=== PATIENT | female | born 1960 | race Caucasian/White ===

== ENCOUNTER 2018-07-19 08:41 | Inpatient (IN) | payer OTHER ==
[2018-07-19 09:03] VITALS: BMI 19.9
--- NOTE | 2018-07-19 09:37 | HP ---
CIWA Score Nausea/Vomitin Muscle Tremors: 2 Anxiety: 2 Agitation: 2 Paroxysmal Sweats: 1-Minimal Palms Moist Orientation: 0-Oriented Tacttile Disturbances: 1-Very Mild Itch/Numbness Auditory Disturbances: 1-Very Mild Visual Disturbances: 0-None Headache: 2-Mild CIWA-Ar Total Score: 13 - Admission Criteria OASAS Guidelines: Admission for Medically Managed Detox: Requires at least one of the followin. CIWA greater than 12 2. Seizures within the past 24 hours 3. Delirium tremens within the past 24 hours 4. Hallucinations within the past 24 hours 5. Acute intervention needed for co occurring medical disorder 6. Acute intervention needed for co occurring psychiatric disorder 7. Severe withdrawal that cannot be handled at a lower level of care (continued vomiting, continued diarrhea, abnormal vital signs) requiring intravenous medication and/or fluids 8. Patient presents the following: CIWA greater than 12 Admission Criteria Met: Admission criteria met Admission ROS S - HPI Chief Complaint: i need help to stop drinking alcohol,cocaine,heroin abused on subxone Allergies/Adverse Reactions: Allergies Allergy/AdvReac Type Severity Reaction Status Date / Time No Known Allergies Allergy Verified 07/19/18 09:56 History of Present Illness: this 37 years old female with alcohol and cocaine dependence,heroin abused,on suboxone,withdrawal symptom,seen in [place] last night,last treatment hypertension,cat bite of right leg and right index seizure last 1988 nicotine dependence weight loss depression longest period of sobriety 6 months tonsillectomy in 1979 asthma plan to go to rehab after detox Exam Limitations: No Limitations - Ebola screening Have you traveled outside of the country in the last 21 days: No Have you had contact with anyone from an Ebola affected area: No Have you been sick,other than usual withdrawal symptoms: No Do you have a fever: No - Review of Systems Constitutional: Loss of Appetite, Malaise, Night Sweats, Changes in sleep, Weakness, Unintentional Wgt. Loss EENT: reports: No Symptoms Reported, Nose Congestion Respiratory: reports: No Symptoms reported Cardiac: reports: No Symptoms Reported GI: reports: Nausea, Poor Appetite, Abdominal cramping : reports: No Symptoms Reported Musculoskeletal: reports: Back Pain, Muscle Pain Integumentary: reports: Dryness Neuro: reports: Headache, Tremors Endocrine: reports: No Symptoms Reported Hematology: reports: No Symptoms Reported Psychiatric: reports: Judgement Intact, Mood/Affect Appropiate, Orientated x3, Depressed Other Systems: Reviewed and Negative Patient History - Patient Medical History Hx Anemia: No Hx Asthma: Yes (on albuterol inhaler) Hx Chronic Obstructive Pulmonary Disease (COPD): No Hx Cancer: No Hx Cardiac Disorders: No Hx Congestive Heart Failure: No Hx Hypertension: Yes Hx Hypercholesterolemia: No Hx Pacemaker: No HX Cerebrovascular Accident: No Hx Seizures: Yes (last in 1988) Hx Dementia: No Hx Diabetes: No Hx Gastrointestinal Disorders: No Hx Liver Disease: No Hx Genitourinary Disorders: No Hx Sexually Transmitted Disorders: No Hx Renal Disease (ESRD): No Hx Thyroid Disease: No Hx Human Immunodeficiency Virus (HIV): No (last 2016) Hx Hepatitis C: No Hx Depression: Yes (no med) Hx Suicide Attempt: No Hx Bipolar Disorder: No Hx Schizophrenia: No Other Medical History: no suicidal,no homicidal,frequent fall - Patient Surgical History Past Surgical History: Yes Hx Section: Yes (x 2,last 32 years ago) Other Surgical History: tonsillectomy in 1979, - PPD History Previous Implant?: Yes Documented Results: Negative w/o proof Implanted On Prior R Admission?: No PPD to be Administered?: Yes - Reproductive History Patient : No - Smoking Cessation Smoking history: Current every day smoker Have you smoked in the past 12 months: Yes Aproximately how many cigarettes per day: 10 Cigars Per Day: 0 Hx Chewing Tobacco Use: No Initiated information on smoking cessation: Yes 'Breaking Loose' booklet given: 07/19/18 - Substance & Tx. History Hx Alcohol Use: Yes Hx Substance Use: Yes Substance Use Type: Alcohol, Cocaine, Heroin Hx Substance Use Treatment: Yes (in [address] [place] [address]) - Substances Abused Alcohol Route: Oral Frequency: Daily Amount used: 1/2 PINT VODKA/ 4-5 BEERS Age of first use: 14 Date of Last Use: 07/18/18 Cocaine Route: Smoking Frequency: Daily Amount used: 2 BAGS Age of first use: 28 Date of Last Use: 07/18/18 Heroin Route: Inhalation Frequency: Daily Amount used: 1 BAG Age of first use: 28 Date of Last Use: 07/17/18 Family Disease History - Family Disease History Family History: Denies Admission Physical Exam S - Vital Signs Vital Signs: Vital Signs - 24 hr 07/19/18 08:57 Temperature 97 F L Pulse Rate 67 Respiratory 17 Rate Blood Pressure 108/63 - Physical General Appearance: Yes: Moderate Distress, Tremorous, Irritable, Sweating, Anxious HEENTM: Yes: Normal ENT Inspection, WEN, Pharynx Normal Respiratory: Yes: Lungs Clear, Normal Breath Sounds, No Respiratory Distress Neck: Yes: Within Normal Limits, Supple, Trachea in good position Breast: Yes: Breast Exam Deferred Cardiology: Yes: Within Normal Limits, Regular Rhythm, Regular Rate, S1, S2 Abdominal: Yes: Within Normal Limits, Normal Bowel Sounds, Non Tender, Flat, Soft Genitourinary: Yes: Within Normal Limits Back: Yes: Muscle Spasm Musculoskeletal: Yes: full range of Motion, Back pain, Muscle Pain Extremities: Yes: Within Normal Limits, Normal Range of Motion, Tremors Neurological: Yes: Within Normal Limits, tooth cutter spur II-XII NML intact, Fully Oriented, Alert, Motor Strength 5/5 Integumentary: Yes: Dry Lymphatic: Yes: Within Normal Limits - Diagnostic (1) Alcohol dependence with uncomplicated withdrawal Current Visit: Yes Status: Acute (2) Cocaine dependence Current Visit: Yes Status: Acute (3) Heroin abuse Current Visit: Yes Status: Acute (4) Encounter for monitoring Suboxone maintenance therapy Current Visit: Yes Status: Acute (5) Weight loss Current Visit: Yes Status: Acute (6) Seizure Current Visit: Yes Status: Acute (7) Nicotine dependence Current Visit: Yes Status: Acute (8) Depression Current Visit: Yes Status: Acute (9) Cat bite of index finger Current Visit: Yes Status: Acute (10) Frequent falls Current Visit: Yes Status: Acute Cleared for Admission [facility] - Detox or Rehab [facility] Level of Care: Medically Managed Detox Regimen/Protocol: Librium [facility] Breath Alcohol Content Breath Alcohol Content: 0.045 Urine Pregancy Test - Result Urine Test Results: Negative- NO Line Present Urine Drug Screen - Results Drug Screen Negative: No Urine Drug Screen Results: ZION-Cocaine, OPI-Opiates, BUP-Suboxone Inpatient Rehab Admission - Rehab Decision to Admit Inpatient rehab admission?: No
[2018-07-19] MEDS ORDERED: ACETAMINOPHEN 325 MG TABLET (FP) PO PRN (10:19)
[2018-07-19] MEDS ORDERED: MAG HYDROX/AL HYDROX/SIMETH 30 ML UNIT-DOSE CUP PO PRN (10:19)
[2018-07-19] MEDS ORDERED: MAGNESIUM HYDROX 2400MG/30ML ORAL SUSPENSION 30 ML CUP PO PRN (10:19)
[2018-07-19] MEDS ORDERED: guaiFENesin/D-METHORPHAN HB 10 ML UNIT-DOSE CUPS PO PRN (10:19)
[2018-07-19] MEDS ORDERED: hydrOXYzine PAMOATE 25 MG CAPSULE (FP) PO PRN (10:19)
[2018-07-19] MEDS ORDERED: LOPERAMIDE HCL 2 MG CAPSULE PO PRN (10:19)
[2018-07-19] MEDS ORDERED: chlordiazePOXIDE HCL 25 MG CAPSULE PO PRN (10:19)
[2018-07-19] MEDS ORDERED: P-EPHED 60MG/TRIPROLIDI 2.5MG TABLET PO PRN (10:19)
[2018-07-19] MEDS ORDERED: IBUPROFEN 400 MG TABLET (FP) PO PRN (10:19)
[2018-07-19] MEDS ORDERED: MAGNESIUM CITRATE 300 ML BOTTLE PO PRN (10:19)
[2018-07-19] MEDS ORDERED: ALBUTEROL SO4 8 GM HFA INHALER IH PRN (10:26)
[2018-07-19] MEDS: chlordiazePOXIDE HCL 25 MG CAPSULE PO SCH ×3 (11:56→22:15)
[2018-07-19] MEDS: NICOTINE 21 MG/24 HOURS TOPICAL PATCH TD SCH (11:56)
--- NOTE | 2018-07-19 13:46 | EKG ---
Test Reason : Blood Pressure : / mmHG Vent. Rate : 076 BPM Atrial Rate : 076 BPM P-R Int : 140 ms QRS Dur : 090 ms QT Int : 464 ms P-R-T Axes : 081 015 055 degrees QTc Int : 522 ms NORMAL SINUS RHYTHM POSSIBLE LEFT ATRIAL ENLARGEMENT LEFT VENTRICULAR HYPERTROPHY INFERIOR INFARCT , AGE UNDETERMINED PROLONGED QT ABNORMAL ECG NO PREVIOUS ECGS AVAILABLE Confirmed by ADI POTTER, ZURDO ([id number]) on 07/19/2018 1:45:52 PM Referred By: Confirmed By:ZURDO JOSHI MD
[2018-07-19] MEDS: NICOTINE POLACRILEX 2 MG GUM BUC PRN (17:30)
[2018-07-19 17:37] LABS: URINE APPEARANCE CLEAR; URINE BILIRUBIN NEGATIVE (<2.0 mg/dL); URINE COLOR STRAW; URINE GLUCOSE (UA) NEGATIVE (NEGATIVE); URINE KETONE 1+ (NEGATIVE); URINE LEUK ESTERASE NEGATIVE (NEGATIVE); URINE NITRITE NEGATIVE (NEGATIVE); URINE PROTEIN NEGATIVE (NEGATIVE); URINE UROBILINOGEN NEGATIVE mg/dL (0.2-1.0)
[2018-07-19] MEDS ORDERED: MELATONIN 5 MG TABLETS PO PRN (22:00)
[2018-07-19] MEDS: PATIENT'S OWN MEDICATION (NON-FORMULARY) (Amox-Tr/K Cl [Augmentin 875-125mg Tablet -] 1 TA PO SCH (22:14)
[2018-07-19] MEDS: THIAMINE HCL 100 MG TABLET (FP) PO SCH (22:14)
[2018-07-20] MEDS: chlordiazePOXIDE HCL 25 MG CAPSULE PO SCH ×4 (06:05→22:17)
[2018-07-20] MEDS: PATIENT'S OWN MEDICATION (NON-FORMULARY) (Amox-Tr/K Cl [Augmentin 875-125mg Tablet -] 1 TA PO SCH ×2 (10:08→22:17)
[2018-07-20] MEDS: BUPRENORPHINE/NALOXONE 2 MG/0.5 MG FILM PACKET SL SCH (10:08)
[2018-07-20] MEDS: PRENATAL VITAMINS W/ FOLIC ACID TABLET (FP) PO SCH (10:08)
[2018-07-20] MEDS: ENALAPRIL MALEATE 10 MG TABLET (FP) PO SCH (10:09)
[2018-07-20] MEDS: NIFEdipine E.R. 30 MG TABLET (FP) PO SCH (10:09)
[2018-07-20] MEDS: NICOTINE 21 MG/24 HOURS TOPICAL PATCH TD SCH (10:10)
[2018-07-20 10:34] LABS: HEMOGLOBIN 10.1 GM/dL (10.7-15.3); MCH 30.2 pg (25.7-33.7); MCHC 33.8 g/dl (32.0-36.0); MEAN CELL VOLUME 89.3 fl (80-96); PLATELET COUNT 232 K/MM3 (134-434); RBC 3.36 M/mm3 (3.60-5.2); WHITE BLOOD COUNT 6.3 K/mm3 (4.0-10.0)
[2018-07-20] MEDS: MENTHOL/PHENOL 1 EACH UD MM PRN ×2 (10:47→14:57)
[2018-07-20 10:58] LABS: ALBUMIN 4.2 g/dl (3.4-5.0); ALK PHOS 110 U/L (45-117); ANION GAP 12 MMOL/L (8-16); BILIRUBIN,TOTAL 0.6 mg/dL (0.2-1); BLOOD UREA NITROGEN 35 mg/dL (7-18); CHLORIDE 100 mmol/L (98-107); CO2 24 mmol/L (21-32); CREATININE 1.2 mg/dL (0.55-1.3); GLUCOSE,RANDOM 67 mg/dL (74-106); POTASSIUM 3.9 mmol/L (3.5-5.1); SGOT/AST 31 U/L (15-37); SGPT/ALT 37 U/L (13-61); SODIUM 136 mmol/L (136-145); TOT PROT 7.4 g/dl (6.4-8.2)
--- NOTE | 2018-07-20 11:39 | PN ---
S CIWA - CIWA Score Nausea/Vomitin-No Nausea/No Vomiting Muscle Tremors: 4-Moderate,w/Arms Extend Anxiety: 3 Agitation: 3 Paroxysmal Sweats: 3 Orientation: 0-Oriented Tacttile Disturbances: 0-None Auditory Disturbances: 0-None Visual Disturbances: 0-None Headache: 0-None Present CIWA-Ar Total Score: 13 S Progress Note (SOAP) Subjective: chills sweats interrupted sleep body aches sore throat Objective: 07/20/18 11:34 Vital Signs Temperature 97.7 F 07/20/18 10:23 Pulse Rate 79 07/20/18 10:23 Respiratory Rate 16 07/20/18 10:23 Blood Pressure 115/53 L 07/20/18 10:23 O2 Sat by Pulse Oximetry (%) Laboratory Tests 07/19/18 07/19/18 07/20/18 09:51 15:30 06:00 WBC 6.3 RBC 3.36 L Hgb 10.1 L Hct 30.0 L MCV 89.3 MCH 30.2 MCHC 33.8 RDW 15.0 Plt Count 232 MPV 8.0 Sodium Potassium Chloride Carbon Dioxide Anion Gap BUN Creatinine Creat Clearance w eGFR Random Glucose Calcium Total Bilirubin AST ALT Alkaline Phosphatase Total Protein Albumin Urine Color Straw Urine Appearance Clear Urine pH 6.0 Ur Specific [place] 1.045 H Urine Protein Negative Urine Glucose (UA) Negative Urine Ketones 1+ H Urine Blood Negative Urine Nitrite Negative Urine Bilirubin Negative Urine Urobilinogen Negative Ur Leukocyte Esterase Negative HIV 1&2 Antibody Screen Negative HIV P24 Antigen Negative 07/20/18 06:00 WBC RBC Hgb Hct MCV MCH MCHC RDW Plt Count MPV Sodium 136 Potassium 3.9 Chloride 100 Carbon Dioxide 24 Anion Gap 12 BUN 35 H Creatinine 1.2 Creat Clearance w eGFR 46.30 Random Glucose 67 L Calcium 9.0 Total Bilirubin 0.6 AST 31 ALT 37 Alkaline Phosphatase 110 Total Protein 7.4 Albumin 4.2 Urine Color Urine Appearance Urine pH Ur Specific [place] Urine Protein Urine Glucose (UA) Urine Ketones Urine Blood Urine Nitrite Urine Bilirubin Urine Urobilinogen Ur Leukocyte Esterase HIV 1&2 Antibody Screen HIV P24 Antigen aaox3 ambulating no acute distress Assessment: 07/20/18 11:35 withdrawal sx throat assessed;no s/s of infection noted Plan: continue detox increase fluids throat lozenges
[2018-07-20 11:49] LABS: SICKLE CELL SCREEN NEGATIVE (NEGATIVE)
[2018-07-20] MEDS: THIAMINE HCL 100 MG TABLET (FP) PO SCH (22:16)
[2018-07-21] MEDS: chlordiazePOXIDE HCL 25 MG CAPSULE PO SCH (05:31)
[2018-07-21] MEDS: PATIENT'S OWN MEDICATION (NON-FORMULARY) (Amox-Tr/K Cl [Augmentin 875-125mg Tablet -] 1 TA PO SCH ×2 (10:08→22:35)
[2018-07-21] MEDS: ENALAPRIL MALEATE 10 MG TABLET (FP) PO SCH (10:09)
[2018-07-21] MEDS: NIFEdipine E.R. 30 MG TABLET (FP) PO SCH (10:09)
[2018-07-21] MEDS: BUPRENORPHINE/NALOXONE 2 MG/0.5 MG FILM PACKET SL SCH (10:09)
[2018-07-21] MEDS: PRENATAL VITAMINS W/ FOLIC ACID TABLET (FP) PO SCH (10:09)
[2018-07-21] MEDS: NICOTINE 21 MG/24 HOURS TOPICAL PATCH TD SCH (10:09)
[2018-07-21] MEDS: chlordiazePOXIDE 5 MG CAPSULE PO SCH ×3 (10:10→22:35)
--- NOTE | 2018-07-21 12:41 | PN ---
[facility] CIWA - CIWA Score Nausea/Vomitin-No Nausea/No Vomiting Muscle Tremors: 3 Anxiety: 3 Agitation: 3 Paroxysmal Sweats: 2 Orientation: 0-Oriented Tacttile Disturbances: 0-None Auditory Disturbances: 0-None Visual Disturbances: 0-None Headache: 0-None Present CIWA-Ar Total Score: 11 S Progress Note (SOAP) Subjective: sweats little dizzy little shakes Objective: 07/21/18 12:40 Vital Signs Temperature 98.0 F 07/21/18 09:24 Pulse Rate 86 07/21/18 09:24 Respiratory Rate 18 07/21/18 09:24 Blood Pressure 109/63 07/21/18 09:24 O2 Sat by Pulse Oximetry (%) Laboratory Tests 07/19/18 07/19/18 07/20/18 09:51 15:30 06:00 WBC 6.3 RBC 3.36 L Hgb 10.1 L Hct 30.0 L MCV 89.3 MCH 30.2 MCHC 33.8 RDW 15.0 Plt Count 232 MPV 8.0 Sickle Cell Screen Negative Sodium Potassium Chloride Carbon Dioxide Anion Gap BUN Creatinine Creat Clearance w eGFR Random Glucose Calcium Total Bilirubin AST ALT Alkaline Phosphatase Total Protein Albumin Urine Color Straw Urine Appearance Clear Urine pH 6.0 Ur Specific [place] 1.045 H Urine Protein Negative Urine Glucose (UA) Negative Urine Ketones 1+ H Urine Blood Negative Urine Nitrite Negative Urine Bilirubin Negative Urine Urobilinogen Negative Ur Leukocyte Esterase Negative RPR Titer HIV 1&2 Antibody Screen Negative HIV P24 Antigen Negative 07/20/18 07/20/18 06:00 06:00 WBC RBC Hgb Hct MCV MCH MCHC RDW Plt Count MPV Sickle Cell Screen Sodium 136 Potassium 3.9 Chloride 100 Carbon Dioxide 24 Anion Gap 12 BUN 35 H Creatinine 1.2 Creat Clearance w eGFR 46.30 Random Glucose 67 L Calcium 9.0 Total Bilirubin 0.6 AST 31 ALT 37 Alkaline Phosphatase 110 Total Protein 7.4 Albumin 4.2 Urine Color Urine Appearance Urine pH Ur Specific [place] Urine Protein Urine Glucose (UA) Urine Ketones Urine Blood Urine Nitrite Urine Bilirubin Urine Urobilinogen Ur Leukocyte Esterase RPR Titer Nonreactive HIV 1&2 Antibody Screen HIV P24 Antigen aaox3 ambulating no acute distress Assessment: 07/21/18 12:40 withdrawal sx Plan: continue detox increase fluids
[2018-07-21] MEDS: MENTHOL/PHENOL 1 EACH UD MM PRN (14:00)
[2018-07-21] MEDS: THIAMINE HCL 100 MG TABLET (FP) PO SCH (22:35)
[2018-07-21] MEDS: NICOTINE POLACRILEX 2 MG GUM BUC PRN (22:37)
[2018-07-22] MEDS: chlordiazePOXIDE 5 MG CAPSULE PO SCH (05:18)
[2018-07-22] MEDS: BUPRENORPHINE/NALOXONE 2 MG/0.5 MG FILM PACKET SL SCH (11:17)
[2018-07-22] MEDS: PRENATAL VITAMINS W/ FOLIC ACID TABLET (FP) PO SCH (11:17)
[2018-07-22] MEDS: NIFEdipine E.R. 30 MG TABLET (FP) PO SCH (11:17)
[2018-07-22] MEDS: ENALAPRIL MALEATE 10 MG TABLET (FP) PO SCH (11:17)
[2018-07-22] MEDS: chlordiazePOXIDE HCL 10 MG CAPSULE PO SCH ×3 (11:17→22:19)
[2018-07-22] MEDS: NICOTINE 21 MG/24 HOURS TOPICAL PATCH TD SCH (11:18)
[2018-07-22] MEDS: PATIENT'S OWN MEDICATION (NON-FORMULARY) (Amox-Tr/K Cl [Augmentin 875-125mg Tablet -] 1 TA PO SCH ×2 (11:18→22:19)
--- NOTE | 2018-07-22 17:09 | PN ---
S Progress Note (SOAP) Subjective: offers no complaint Objective: 07/22/18 17:07 in hallway, ambulating steadily no distress noted Vital Signs Temperature 97.5 F L 07/22/18 14:36 Pulse Rate 575 H 07/22/18 14:36 Respiratory Rate 18 07/22/18 14:36 Blood Pressure 128/77 07/22/18 14:36 O2 Sat by Pulse Oximetry (%) Assessment: 07/22/18 17:08 detox going on successfully Plan: for d/c in a.m
[2018-07-22] MEDS: MENTHOL/PHENOL 1 EACH UD MM PRN (17:30)
[2018-07-22] MEDS: NICOTINE POLACRILEX 2 MG GUM BUC PRN ×2 (17:30→22:21)
[2018-07-22] MEDS: THIAMINE HCL 100 MG TABLET (FP) PO SCH (22:19)
[2018-07-23] MEDS: chlordiazePOXIDE HCL 10 MG CAPSULE PO SCH (05:22)
[2018-07-23] MEDS: NICOTINE POLACRILEX 2 MG GUM BUC PRN (05:23)
[2018-07-23 09:31] VITALS: BP 127/68; PULSE 77; TEMP 99.5
[2018-07-23] MEDS: NICOTINE 21 MG/24 HOURS TOPICAL PATCH TD SCH (10:45)
[2018-07-23] MEDS: BUPRENORPHINE/NALOXONE 2 MG/0.5 MG FILM PACKET SL SCH (10:45)
[2018-07-23] MEDS: PRENATAL VITAMINS W/ FOLIC ACID TABLET (FP) PO SCH (10:46)
[2018-07-23] MEDS: NIFEdipine E.R. 30 MG TABLET (FP) PO SCH (10:46)
[2018-07-23] MEDS: ENALAPRIL MALEATE 10 MG TABLET (FP) PO SCH (10:46)
--- NOTE | 2018-07-23 11:07 | DS ---
[facility] Detox Discharge Summary Admission Date: 07/19/18 Discharge Date: 07/23/18 - History Present History: Alcohol Dependence, Cocaine Dependence, Opioid Dependence, MMTP Additional Comments: Patient completed detox. Await admission to [facility] inpatient Rehab today. Patient is A/A/Ox3, in nad, vss, ambulatory. Patient is stable for admission to Rehab. Pertinent Past History: Alcohol dependence Cocaine dependence Opioid dependence on agonist Seizure disorder Nicotine dependence Asthma HTN Depression - Physical Exam Results Vital Signs: Vital Signs Temperature 99.5 F 07/23/18 09:31 Pulse Rate 77 07/23/18 09:31 Respiratory Rate 18 07/23/18 09:31 Blood Pressure 127/68 07/23/18 09:31 O2 Sat by Pulse Oximetry (%) Pertinent Admission Physical Exam Findings: Laboratory Tests 07/19/18 07/19/18 07/20/18 09:51 15:30 06:00 WBC 6.3 RBC 3.36 L Hgb 10.1 L Hct 30.0 L MCV 89.3 MCH 30.2 MCHC 33.8 RDW 15.0 Plt Count 232 MPV 8.0 Sickle Cell Screen Negative Sodium Potassium Chloride Carbon Dioxide Anion Gap BUN Creatinine Creat Clearance w eGFR Random Glucose Calcium Total Bilirubin AST ALT Alkaline Phosphatase Total Protein Albumin Urine Color Straw Urine Appearance Clear Urine pH 6.0 Ur Specific [place] 1.045 H Urine Protein Negative Urine Glucose (UA) Negative Urine Ketones 1+ H Urine Blood Negative Urine Nitrite Negative Urine Bilirubin Negative Urine Urobilinogen Negative Ur Leukocyte Esterase Negative RPR Titer HIV 1&2 Antibody Screen Negative HIV P24 Antigen Negative 07/20/18 07/20/18 06:00 06:00 WBC RBC Hgb Hct MCV MCH MCHC RDW Plt Count MPV Sickle Cell Screen Sodium 136 Potassium 3.9 Chloride 100 Carbon Dioxide 24 Anion Gap 12 BUN 35 H Creatinine 1.2 Creat Clearance w eGFR 46.30 Random Glucose 67 L Calcium 9.0 Total Bilirubin 0.6 AST 31 ALT 37 Alkaline Phosphatase 110 Total Protein 7.4 Albumin 4.2 Urine Color Urine Appearance Urine pH Ur Specific [place] Urine Protein Urine Glucose (UA) Urine Ketones Urine Blood Urine Nitrite Urine Bilirubin Urine Urobilinogen Ur Leukocyte Esterase RPR Titer Nonreactive HIV 1&2 Antibody Screen HIV P24 Antigen Labs reviewed: noted with anemia and CRISTINO (encouraged PO water hydration), would benefit from iron studies to check if iron deficiency anemia. Consider repeating BMP on rehab floor - Treatment Hospital Course: Detox Protocol Followed, Detoxed Safely, Responded well, Discharged Condition Good, Rehab Referral Accepted - Medication Discharge Medications: Ambulatory Orders Albuterol Sulfate Inhaler - [Ventolin Hfa Inhaler -] 2 inh PO Q4H PRN 07/19/18 Amox-Tr/K Cl [Augmentin - 875Mg Tablet] 1 tab PO BID 07/19/18 Buprenorphine HCl/Naloxone HCl [Zubsolv 1.4-0.36 mg Tablet Sl] 1 each SL DAILY 07/19/18 Enalapril Maleate [Vasotec] 20 mg PO DAILY 07/19/18 Ibuprofen [Motrin -] 400 mg PO TID 07/19/18 Nifedipine ER [Procardia Xl -] 30 mg PO DAILY 07/19/18 - Diagnosis (1) Asthma Current Visit: Yes Status: Chronic (2) HTN (hypertension) Current Visit: Yes Status: Chronic (3) Alcohol dependence with uncomplicated withdrawal Current Visit: Yes Status: Acute (4) Cat bite of index finger Current Visit: Yes Status: Acute (5) Cocaine dependence Current Visit: Yes Status: Chronic (6) Depression Current Visit: Yes Status: Chronic (7) Encounter for monitoring Suboxone maintenance therapy Current Visit: Yes Status: Acute (8) Heroin abuse Current Visit: Yes Status: Chronic (9) Nicotine dependence Current Visit: Yes Status: Chronic (10) Seizure Current Visit: Yes Status: Chronic - AMA Did Patient Leave Against Medical Advice: No (Accepted admission to [facility])
[2018-07-23] MEDS: PATIENT'S OWN MEDICATION (NON-FORMULARY) (Amox-Tr/K Cl [Augmentin 875-125mg Tablet -] 1 TA PO SCH (11:25)
== END 2018-07-23 11:32 | disposition other institution (70) | DRG 773 ==
LOC: YASAS 08:41 → Y6N 10:45
PROVIDERS: ADMIT Surgery; ATTEND Surgery
PROC: HZ2ZZZZ Detoxification Services for Substance Abuse Treatment (ICD-10-PCS; principal; 2018-07-19)
DX: F10.230 Alcohol dependence with withdrawal, uncomplicated (principal); F14.20 Cocaine dependence, uncomplicated; F11.10 Opioid abuse, uncomplicated; F17.210 Nicotine dependence, cigarettes, uncomplicated; F32.9 Major depressive disorder, single episode, unspecified; I10 Essential (primary) hypertension; J45.909 Unspecified asthma, uncomplicated; R29.6 Repeated falls; R63.4 Abnormal weight loss; Z68.1 Body mass index [BMI] 19.9 or less, adult; Z51.81 Encounter for therapeutic drug level monitoring; Z86.69 Personal history of other diseases of the nervous system and sense organs; S61.250D Open bite of right index finger without damage to nail, subsequent encounter; S81.851D Open bite, right lower leg, subsequent encounter; W55.01XD Bitten by cat, subsequent encounter
CPT/HCPCS: 36415; 80053; 81003; 85027; 85660; 86593; 87389; 93005; 93010

== ENCOUNTER 2018-07-23 11:28 | Inpatient (IN) | payer OTHER ==
--- NOTE | 2018-07-23 12:21 | HP ---
ISIDRO POTTER Rehab Assess/Revision - Admission History Admitted to Rehab from: [facility] [address] [place] Date of Admission to Rehab: 07/23/18 - Vital signs Vital Signs: Vital Signs Period Temp Pulse Resp BP Sys/Guerrero Pulse Ox Last 24 Hr 98.3 F 82 17 116/75 - Findings Detox History & Physical reviewed: Yes Concur with findings: Yes Inpatient Rehab Admission - Rehab Decision to Admit Inpatient rehab admission?: Yes - Initial Determination Are CD services needed?: No Free of communicable disease: Yes Not in need of hospitalization: No - Rehab Admission Criteria Previous failed treatment: Yes Poor recovery environment: Yes Comorbidities: Yes Lacks judgement: Yes Patient is meeting Inpatient Rehab admission criteria:: Yes
[2018-07-23] MEDS ORDERED: hydrOXYzine PAMOATE 25 MG CAPSULE (FP) PO PRN (12:23)
[2018-07-23] MEDS ORDERED: MAG HYDROX/AL HYDROX/SIMETH 30 ML UNIT-DOSE CUP PO PRN (12:23)
[2018-07-23] MEDS ORDERED: LOPERAMIDE HCL 2 MG CAPSULE PO PRN (12:23)
[2018-07-23] MEDS ORDERED: IBUPROFEN 400 MG TABLET (FP) PO PRN (12:23)
[2018-07-23] MEDS ORDERED: MAGNESIUM CITRATE 300 ML BOTTLE PO PRN (12:23)
[2018-07-23] MEDS ORDERED: ACETAMINOPHEN 325 MG TABLET (FP) PO PRN (12:23)
[2018-07-23] MEDS ORDERED: guaiFENesin/D-METHORPHAN HB 10 ML UNIT-DOSE CUPS PO PRN (12:23)
[2018-07-23] MEDS ORDERED: MAGNESIUM HYDROX 2400MG/30ML ORAL SUSPENSION 30 ML CUP PO PRN (12:23)
[2018-07-23] MEDS ORDERED: ALBUTEROL SO4 8 GM HFA INHALER IH PRN (14:48)
[2018-07-23] MEDS: AMOX TR/POT CLAV 875MG/125MG TABLETS (FP) PO SCH (16:47)
[2018-07-23] MEDS: THIAMINE HCL 100 MG TABLET (FP) PO SCH (21:36)
[2018-07-23] MEDS: MENTHOL/PHENOL 1 EACH UD MM PRN (21:37)
[2018-07-23] MEDS ORDERED: MELATONIN 5 MG TABLETS PO PRN (22:00)
[2018-07-24] MEDS: AMOX TR/POT CLAV 875MG/125MG TABLETS (FP) PO SCH ×2 (07:47→17:20)
[2018-07-24] MEDS: PRENATAL VITAMINS W/ FOLIC ACID TABLET (FP) PO SCH (09:49)
[2018-07-24] MEDS: ENALAPRIL MALEATE 10 MG TABLET (FP) PO SCH (09:49)
[2018-07-24] MEDS: NICOTINE 21 MG/24 HOURS TOPICAL PATCH TD SCH (09:49)
[2018-07-24] MEDS: BUPRENORPHINE/NALOXONE 2 MG/0.5 MG FILM PACKET SL SCH (09:49)
[2018-07-24] MEDS: NIFEdipine E.R. 30 MG TABLET (FP) PO SCH (09:50)
[2018-07-24 11:12] LABS: ANION GAP 5 MMOL/L (8-16); BLOOD UREA NITROGEN 24 mg/dL (7-18); CHLORIDE 106 mmol/L (98-107); CO2 29 mmol/L (21-32); CREATININE 0.8 mg/dL (0.55-1.3); GLUCOSE,RANDOM 89 mg/dL (74-106); POTASSIUM 4.9 mmol/L (3.5-5.1); SODIUM 140 mmol/L (136-145)
[2018-07-24] MEDS: MENTHOL/PHENOL 1 EACH UD MM PRN (11:26)
[2018-07-24] MEDS: THIAMINE HCL 100 MG TABLET (FP) PO SCH (21:43)
[2018-07-25 08:06] LABS: SERUM IRON SATURATION 20 % (15-55); TOTAL IRON BINDING CAPACITY 264 ug/dL (250-450); UIBC 210 ug/dL (131-425)
[2018-07-25] MEDS: AMOX TR/POT CLAV 875MG/125MG TABLETS (FP) PO SCH ×2 (08:32→18:26)
[2018-07-25] MEDS: NICOTINE POLACRILEX 4 MG GUM BUC PRN ×2 (08:33→18:26)
[2018-07-25] MEDS: NIFEdipine E.R. 30 MG TABLET (FP) PO SCH ×2 (10:00→12:17)
[2018-07-25] MEDS: ENALAPRIL MALEATE 10 MG TABLET (FP) PO SCH (10:00)
[2018-07-25] MEDS: NICOTINE 21 MG/24 HOURS TOPICAL PATCH TD SCH (10:00)
[2018-07-25] MEDS: PRENATAL VITAMINS W/ FOLIC ACID TABLET (FP) PO SCH (10:00)
[2018-07-25] MEDS: BUPRENORPHINE/NALOXONE 2 MG/0.5 MG FILM PACKET SL SCH (10:01)
[2018-07-25] MEDS: THIAMINE HCL 100 MG TABLET (FP) PO SCH (22:30)
[2018-07-26] MEDS: AMOX TR/POT CLAV 875MG/125MG TABLETS (FP) PO SCH ×2 (07:02→17:30)
[2018-07-26] MEDS: NICOTINE 21 MG/24 HOURS TOPICAL PATCH TD SCH (09:46)
[2018-07-26] MEDS: PRENATAL VITAMINS W/ FOLIC ACID TABLET (FP) PO SCH (09:46)
[2018-07-26] MEDS: ENALAPRIL MALEATE 10 MG TABLET (FP) PO SCH (09:47)
[2018-07-26] MEDS: NIFEdipine E.R. 30 MG TABLET (FP) PO SCH (09:47)
[2018-07-26] MEDS: BUPRENORPHINE/NALOXONE 2 MG/0.5 MG FILM PACKET SL SCH (09:47)
[2018-07-26] MEDS: NICOTINE POLACRILEX 4 MG GUM BUC PRN (09:49)
[2018-07-26] MEDS: THIAMINE HCL 100 MG TABLET (FP) PO SCH (21:58)
[2018-07-27] MEDS: BUPRENORPHINE/NALOXONE 2 MG/0.5 MG FILM PACKET SL SCH (10:12)
[2018-07-27] MEDS: NICOTINE 21 MG/24 HOURS TOPICAL PATCH TD SCH (10:12)
[2018-07-27] MEDS: NIFEdipine E.R. 30 MG TABLET (FP) PO SCH (10:12)
[2018-07-27] MEDS: ENALAPRIL MALEATE 10 MG TABLET (FP) PO SCH (10:12)
[2018-07-27] MEDS: PRENATAL VITAMINS W/ FOLIC ACID TABLET (FP) PO SCH (10:12)
[2018-07-27] MEDS: NICOTINE POLACRILEX 4 MG GUM BUC PRN ×2 (10:16→18:01)
[2018-07-27] MEDS: THIAMINE HCL 100 MG TABLET (FP) PO SCH (21:40)
[2018-07-27] MEDS: P-EPHED 60MG/TRIPROLIDI 2.5MG TABLET PO PRN (21:45)
[2018-07-28] MEDS: NICOTINE 21 MG/24 HOURS TOPICAL PATCH TD SCH (10:51)
[2018-07-28] MEDS: BUPRENORPHINE/NALOXONE 2 MG/0.5 MG FILM PACKET SL SCH (10:52)
[2018-07-28] MEDS: PRENATAL VITAMINS W/ FOLIC ACID TABLET (FP) PO SCH (10:52)
[2018-07-28] MEDS: NIFEdipine E.R. 30 MG TABLET (FP) PO SCH (10:52)
[2018-07-28] MEDS: ENALAPRIL MALEATE 10 MG TABLET (FP) PO SCH (10:53)
[2018-07-28] MEDS: THIAMINE HCL 100 MG TABLET (FP) PO SCH (21:35)
[2018-07-28] MEDS: P-EPHED 60MG/TRIPROLIDI 2.5MG TABLET PO PRN (21:35)
[2018-07-29] MEDS: NICOTINE POLACRILEX 4 MG GUM BUC PRN ×2 (06:48→18:43)
[2018-07-29] MEDS: NICOTINE 21 MG/24 HOURS TOPICAL PATCH TD SCH (10:13)
[2018-07-29] MEDS: PRENATAL VITAMINS W/ FOLIC ACID TABLET (FP) PO SCH (10:13)
[2018-07-29] MEDS: BUPRENORPHINE/NALOXONE 2 MG/0.5 MG FILM PACKET SL SCH (10:14)
[2018-07-29] MEDS: NIFEdipine E.R. 30 MG TABLET (FP) PO SCH (10:14)
[2018-07-29] MEDS: ENALAPRIL MALEATE 10 MG TABLET (FP) PO SCH (10:14)
[2018-07-29] MEDS: THIAMINE HCL 100 MG TABLET (FP) PO SCH (22:27)
[2018-07-30] MEDS: PRENATAL VITAMINS W/ FOLIC ACID TABLET (FP) PO SCH (09:56)
[2018-07-30] MEDS: ENALAPRIL MALEATE 10 MG TABLET (FP) PO SCH (09:56)
[2018-07-30] MEDS: NIFEdipine E.R. 30 MG TABLET (FP) PO SCH (09:56)
[2018-07-30] MEDS: NICOTINE 21 MG/24 HOURS TOPICAL PATCH TD SCH (09:56)
[2018-07-30] MEDS: BUPRENORPHINE/NALOXONE 2 MG/0.5 MG FILM PACKET SL SCH (09:56)
[2018-07-30] MEDS: NICOTINE POLACRILEX 4 MG GUM BUC PRN ×2 (09:58→21:46)
[2018-07-30] MEDS: THIAMINE HCL 100 MG TABLET (FP) PO SCH (21:45)
[2018-07-31] MEDS: PRENATAL VITAMINS W/ FOLIC ACID TABLET (FP) PO SCH (10:09)
[2018-07-31] MEDS: NIFEdipine E.R. 30 MG TABLET (FP) PO SCH (10:10)
[2018-07-31] MEDS: NICOTINE 21 MG/24 HOURS TOPICAL PATCH TD SCH (10:10)
[2018-07-31] MEDS: BUPRENORPHINE/NALOXONE 2 MG/0.5 MG FILM PACKET SL SCH (10:10)
[2018-07-31] MEDS: ENALAPRIL MALEATE 10 MG TABLET (FP) PO SCH (10:11)
--- NOTE | 2018-07-31 13:14 | PN ---
[facility] Progress Note Note: C/O BURNING IN VAGINAL AREA. PT UNABLE TO GIVE MORE INFORMATION AND AGITATED AND ANGRY WHEN ASKED ABOUT OTHER SYMPTOMS. REVIEW OF UA IN DETOX IS UNREMARKABLE FOR UTI SUSPICION. Vital Signs - 24 hr 07/31/18 07/31/18 07/31/18 00:30 03:30 07:16 Temperature 97.2 F L Pulse Rate 68 Respiratory 18 18 18 Rate Blood Pressure 118/72 07/31/18 09:16 Temperature Pulse Rate 78 Respiratory Rate Blood Pressure 102/59 L Laboratory Tests 07/24/18 07/24/18 07:35 07:35 Sodium 140 Potassium 4.9 Chloride 106 Carbon Dioxide 29 Anion Gap 5 L BUN 24 H Creatinine 0.8 Creat Clearance w eGFR > 60 Random Glucose 89 Calcium 9.0 Iron 54 TIBC 264 Iron Saturation 20 Vitamin B12 600 Serum Folate 17 PLAN:INCREASE PO FLUIDS REPEAT UA MONITOR PT AND RE-EVALUATE.
[2018-07-31] MEDS: THIAMINE HCL 100 MG TABLET (FP) PO SCH (21:35)
[2018-08-01 07:13] VITALS: TEMP 97.4
--- NOTE | 2018-08-01 08:17 | CONSULT ---
[facility] Psychiatric Consult - Data Date of interview: 08/01/18 Admission source: [facility] ED Identifying data: Ms Lincoln is a 57 years old female, unemployed seeking inpatient rehab treatment for alcohol, cocaine and cannabis Substance Abuse History: Reports history of alcohol, cocaine and marijuana use. Refer to addiction counselor's summary for further information Medical History: Significant for bronchial asthma, hypertension, low back pain, seizure disorder, history of myocardial infarction and surgeries(tonsillectomy, x2). Patient is on Suboxone. Smokes 10 cigarettes daily
--- NOTE | 2018-08-01 09:42 | PN ---
[facility] Progress Note Note: Deboning Team Leader was told by nursing staff that patient does not want to be seen
[2018-08-01] MEDS: NIFEdipine E.R. 30 MG TABLET (FP) PO SCH (10:13)
[2018-08-01] MEDS: NICOTINE 21 MG/24 HOURS TOPICAL PATCH TD SCH (10:13)
[2018-08-01] MEDS: ENALAPRIL MALEATE 10 MG TABLET (FP) PO SCH (10:14)
[2018-08-01] MEDS: BUPRENORPHINE/NALOXONE 2 MG/0.5 MG FILM PACKET SL SCH (10:14)
[2018-08-01] MEDS: PRENATAL VITAMINS W/ FOLIC ACID TABLET (FP) PO SCH (10:14)
[2018-08-01] MEDS: THIAMINE HCL 100 MG TABLET (FP) PO SCH (21:45)
[2018-08-02] MEDS: PRENATAL VITAMINS W/ FOLIC ACID TABLET (FP) PO SCH (10:03)
[2018-08-02] MEDS: ENALAPRIL MALEATE 10 MG TABLET (FP) PO SCH (10:04)
[2018-08-02] MEDS: NICOTINE 21 MG/24 HOURS TOPICAL PATCH TD SCH (10:04)
[2018-08-02] MEDS: BUPRENORPHINE/NALOXONE 2 MG/0.5 MG FILM PACKET SL SCH (10:04)
[2018-08-02] MEDS: NIFEdipine E.R. 30 MG TABLET (FP) PO SCH (10:04)
--- NOTE | 2018-08-02 10:31 | CONSULT ---
[facility] Psychiatric Consult - Data Date of interview: 08/02/18 Admission source: [facility] Identifying data: This is the first admission to [address] [place] [address] for this 57 years olf H female mother of 3 grown,resides with friends,supported by [place]. Psychiatric Findings - Problem List ([place] 1, 2,3) (1) Alcohol dependence with uncomplicated withdrawal Current Visit: Yes Status: Chronic (2) Encounter for monitoring Suboxone maintenance therapy Current Visit: Yes Status: Chronic (3) Asthma Current Visit: Yes Status: Chronic (4) Cocaine dependence Current Visit: Yes Status: Chronic (5) Hypertension Current Visit: Yes Status: Chronic (6) Nicotine dependence Current Visit: Yes Status: Chronic (7) Seizure Current Visit: No Status: Chronic
[2018-08-02 10:37] VITALS: BP 145/75; PULSE 74
--- NOTE | 2018-08-02 10:39 | PN ---
[facility] Progress Note Note: PT COMPLETED REHAB AND DISCHARGING TODAY. PT MET WITH COUNSELOR AND REFERRED TO [facility] ON 08/03/18 AT 10 A.M FOR FOLLOW UP. PT REPORTS SHE HAS A PMD BERNARD PERAZA AND HAS APPOINTMENT FOLLOW UP VISIT ON 08/09/18 FOR MEDICAL MANAGEMENT/RX AT [facility], [address] [place] [address]. Vital Signs - 24 hr 08/02/18 08/02/18 08/02/18 03:30 06:30 06:56 Respiratory 18 18 18 Rate Laboratory Tests 07/24/18 07/24/18 07:35 07:35 Sodium 140 Potassium 4.9 Chloride 106 Carbon Dioxide 29 Anion Gap 5 L BUN 24 H Creatinine 0.8 Creat Clearance w eGFR > 60 Random Glucose 89 Calcium 9.0 Iron 54 TIBC 264 Iron Saturation 20 Vitamin B12 600 Serum Folate 17 PT DECLINED REPEAT UA. INSTRUCTED TO TAKE COPIES OF LAB RESULT PROVIDED TO HER PMD FOR MANAGEMENT IF NEEDED. NAD MEDICALLY STABLE PLAN:FOLLOW UP WITH AFTERCARE AND PMD APPOINTMENTS RECOMMENDED.
== END 2018-08-02 10:50 | disposition home or self-care (01) | DRG 772 ==
LOC: YASAS 11:28 → Y3E 11:29
PROVIDERS: ADMIT Neuromusculoskeletal Medicine & OMM; ATTEND Neuromusculoskeletal Medicine & OMM
PROC: HZ42ZZZ Group Counseling for Substance Abuse Treatment, Cognitive-Behavioral (ICD-10-PCS; principal; 2018-07-23)
DX: F10.20 Alcohol dependence, uncomplicated (principal); F11.20 Opioid dependence, uncomplicated; F14.20 Cocaine dependence, uncomplicated; F17.210 Nicotine dependence, cigarettes, uncomplicated; I10 Essential (primary) hypertension; J45.909 Unspecified asthma, uncomplicated; R00.2 Palpitations; Z86.69 Personal history of other diseases of the nervous system and sense organs
CPT/HCPCS: 36415; 80048; 82607; 82746; 83540; 83550

== ENCOUNTER 2022-05-18 19:18 | Inpatient (IN) | payer OTHER ==
[2022-05-18 20:28] VITALS: BMI 18.3
[2022-05-18] MEDS ORDERED: MAG HYDROX/AL HYDROX/SIMETH 30 ML UNIT-DOSE CUP PO PRN (21:45)
[2022-05-18] MEDS ORDERED: ACETAMINOPHEN 325 MG TABLET (FP) PO PRN ×2 (21:45)
[2022-05-18] MEDS ORDERED: ONDANSETRON *ODT* 4 MG TABLET SL PRN (21:45)
[2022-05-18] MEDS ORDERED: MAGNESIUM HYDROX 2400MG/30ML ORAL SUSPENSION 30 ML CUP PO PRN (21:45)
[2022-05-18] MEDS ORDERED: BENZOCAINE/MENTHOL (CHLORASEPTIC ) LOZENGE MM PRN (21:45)
[2022-05-18] MEDS ORDERED: LOPERAMIDE HCL 2 MG CAPSULE PO PRN (21:45)
[2022-05-18] MEDS ORDERED: POLYETHYLENE GLYCOL (HEALTHYLAX) 3350 17 GM PACKET PO PRN (21:45)
[2022-05-18] MEDS ORDERED: BISMUTH SUBSALICYLATE 524 MG/30 ML PO PRN (21:45)
[2022-05-18] MEDS ORDERED: IBUPROFEN 600 MG TABLET (FP) PO PRN (21:45)
[2022-05-18] MEDS ORDERED: DICYCLOMINE HCL 10 MG CAPSULE PO PRN (21:45)
[2022-05-18] MEDS ORDERED: NICOTINE POLACRILEX 2 MG GUM BUC PRN (21:45)
[2022-05-18] MEDS ORDERED: IBUPROFEN 400 MG TABLET (FP) PO PRN (21:45)
[2022-05-18] MEDS ORDERED: NALOXONE HCL (KLOXXADO) 8 MG SPRAY NS PRN (21:45)
[2022-05-18] MEDS: THIAMINE HCL 100 MG TABLET (FP) PO SCH (23:42)
[2022-05-18] MEDS: METHOCARBAMOL 500 MG TABLET PO PRN (23:43)
[2022-05-18] MEDS: hydrOXYzine PAMOATE 25 MG CAPSULE (FP) PO PRN (23:43)
[2022-05-18] MEDS: MELATONIN 5 MG TABLETS PO SCH (23:43)
[2022-05-19] MEDS ORDERED: ALBUTEROL SO4 HFA INHALER IH PRN (00:12)
[2022-05-19] MEDS ORDERED: LISINOPRIL 20 MG TABLET PO ONE ×2 (00:14→06:15)
[2022-05-19] MEDS: METHOCARBAMOL 500 MG TABLET PO PRN (06:19)
[2022-05-19] MEDS: hydrOXYzine PAMOATE 25 MG CAPSULE (FP) PO PRN ×2 (06:19→22:12)
[2022-05-19] MEDS ORDERED: methaDONE HCL 10 MG TABLET PO ONE (09:27)
[2022-05-19] MEDS ORDERED: PATIENT'S OWN MEDICATION (NON-FORMULARY) (Enalapril Maleate [Vasotec] 20 MG Tablet) PO SCH (10:00)
[2022-05-19] MEDS ORDERED: methaDONE 80 MG, methaDONE 10 MG PO ONE (10:00)
[2022-05-19] MEDS: PRENATAL VITAMINS W/ FOLIC ACID TABLET (FP) PO SCH (10:51)
[2022-05-19] MEDS: NIFEdipine E.R. 30 MG TABLET PO SCH (10:52)
[2022-05-19] MEDS: ENALAPRIL MALEATE 10 MG TABLET PO SCH (10:52)
[2022-05-19] MEDS: NICOTINE 14 MG/24 HOURS TOPICAL PATCH TD SCH (10:53)
[2022-05-19 14:56] LABS: ALBUMIN 3.1 g/dl (3.4-5.0)
[2022-05-19 14:57] LABS: BLOOD UREA NITROGEN 30.4 mg/dL (7-18)
[2022-05-19 14:59] LABS: CREATININE 1.5 mg/dL (0.55-1.3)
[2022-05-19 15:01] LABS: BILIRUBIN,TOTAL 0.3 mg/dL (0.2-1); TOT PROT 5.8 g/dl (6.4-8.2)
[2022-05-19 15:09] LABS: HEMATOCRIT 36.7 % (32.4-45.2); HEMOGLOBIN 11.6 GM/dL (10.7-15.3); MCH 30.9 pg (25.7-33.7); MCHC 31.6 g/dl (32.0-36.0); MEAN CELL VOLUME 97.8 fl (80-96); PLATELET COUNT 262 10^3/uL (134-434); RBC 3.75 M/mm3 (3.60-5.2); RDW 14.4 % (11.6-15.6); WHITE BLOOD COUNT 4.7 K/mm3 (4.0-10.0)
[2022-05-19] MEDS: THIAMINE HCL 100 MG TABLET (FP) PO SCH (22:11)
[2022-05-19] MEDS: MELATONIN 5 MG TABLETS PO SCH (22:11)
[2022-05-20] MEDS ORDERED: methaDONE HCL 10 MG TABLET PO SCH (06:00)
[2022-05-20] MEDS: methaDONE 80 MG, methaDONE 10 MG PO SCH (06:43)
[2022-05-20] MEDS ORDERED: chlordiazePOXIDE HCL 25 MG CAPSULE PO PRN (09:56)
[2022-05-20] MEDS: NIFEdipine E.R. 30 MG TABLET PO SCH (10:17)
[2022-05-20] MEDS: PRENATAL VITAMINS W/ FOLIC ACID TABLET (FP) PO SCH (10:17)
[2022-05-20] MEDS: ENALAPRIL MALEATE 10 MG TABLET PO SCH (10:17)
[2022-05-20] MEDS: NICOTINE 14 MG/24 HOURS TOPICAL PATCH TD SCH (10:20)
[2022-05-20] MEDS ORDERED: chlordiazePOXIDE HCL 25 MG CAPSULE PO SCH (11:00)
[2022-05-20 12:08] LABS: HIV INTERPRETATION NEGATIVE (NEGATIVE)
[2022-05-20] MEDS: LACTULOSE 20 GM/30 ML UDC (FOR ORAL USE ONLY) PO SCH ×2 (13:52→22:49)
[2022-05-20] MEDS ORDERED: LORazepam 1 MG TABLET PO PRN (13:54)
[2022-05-20] MEDS: METHOCARBAMOL 500 MG TABLET PO PRN (17:50)
[2022-05-20] MEDS: LORazepam 2 MG TABLET PO SCH ×2 (17:50→23:07)
[2022-05-20] MEDS: hydrOXYzine PAMOATE 25 MG CAPSULE (FP) PO PRN (17:53)
[2022-05-20] MEDS: THIAMINE HCL 100 MG TABLET (FP) PO SCH (22:49)
[2022-05-20] MEDS: MELATONIN 5 MG TABLETS PO SCH (22:49)
[2022-05-21] MEDS: LORazepam 2 MG TABLET PO SCH ×3 (06:13→18:55)
[2022-05-21] MEDS: methaDONE 80 MG, methaDONE 10 MG PO SCH (06:13)
[2022-05-21] MEDS: LACTULOSE 20 GM/30 ML UDC (FOR ORAL USE ONLY) PO SCH ×3 (06:14→22:50)
[2022-05-21] MEDS: ENALAPRIL MALEATE 10 MG TABLET PO SCH (10:48)
[2022-05-21] MEDS: NICOTINE 14 MG/24 HOURS TOPICAL PATCH TD SCH (10:48)
[2022-05-21] MEDS: PRENATAL VITAMINS W/ FOLIC ACID TABLET (FP) PO SCH (10:48)
[2022-05-21] MEDS: NIFEdipine E.R. 30 MG TABLET PO SCH (11:35)
[2022-05-21] MEDS: THIAMINE HCL 100 MG TABLET (FP) PO SCH (22:50)
[2022-05-22] MEDS ORDERED: LORazepam 0.5 MG TABLET PO PRN
[2022-05-22] MEDS: MELATONIN 5 MG TABLETS PO SCH ×2 (00:05→22:48)
[2022-05-22] MEDS: LORazepam 2 MG TABLET PO SCH ×2 (00:05→07:00)
[2022-05-22] MEDS ORDERED: chlordiazePOXIDE HCL 25 MG CAPSULE PO SCH (05:00)
[2022-05-22] MEDS: methaDONE 80 MG, methaDONE 10 MG PO SCH (06:39)
[2022-05-22] MEDS: LACTULOSE 20 GM/30 ML UDC (FOR ORAL USE ONLY) PO SCH ×3 (06:42→22:48)
[2022-05-22] MEDS: LORazepam 1 MG TABLET PO SCH ×4 (07:01→22:49)
[2022-05-22] MEDS: ENALAPRIL MALEATE 10 MG TABLET PO SCH (11:08)
[2022-05-22] MEDS: NIFEdipine E.R. 30 MG TABLET PO SCH (11:08)
[2022-05-22] MEDS: PRENATAL VITAMINS W/ FOLIC ACID TABLET (FP) PO SCH (11:08)
[2022-05-22] MEDS: NICOTINE 14 MG/24 HOURS TOPICAL PATCH TD SCH (11:08)
[2022-05-22] MEDS: THIAMINE HCL 100 MG TABLET (FP) PO SCH (22:48)
[2022-05-23] MEDS ORDERED: chlordiazePOXIDE HCL 10 MG CAPSULE PO PRN
[2022-05-23] MEDS ORDERED: chlordiazePOXIDE HCL 10 MG CAPSULE PO SCH (05:00)
[2022-05-23] MEDS: methaDONE 80 MG, methaDONE 10 MG PO SCH (06:08)
[2022-05-23] MEDS: LORazepam 0.5 MG TABLET PO SCH ×4 (06:09→22:37)
[2022-05-23] MEDS: LACTULOSE 20 GM/30 ML UDC (FOR ORAL USE ONLY) PO SCH ×3 (06:10→22:37)
[2022-05-23] MEDS: ENALAPRIL MALEATE 10 MG TABLET PO SCH (10:51)
[2022-05-23] MEDS: PRENATAL VITAMINS W/ FOLIC ACID TABLET (FP) PO SCH (10:51)
[2022-05-23] MEDS: NIFEdipine E.R. 30 MG TABLET PO SCH (10:51)
[2022-05-23] MEDS: NICOTINE 14 MG/24 HOURS TOPICAL PATCH TD SCH (10:51)
[2022-05-23] MEDS: MELATONIN 5 MG TABLETS PO SCH (22:35)
[2022-05-23] MEDS: THIAMINE HCL 100 MG TABLET (FP) PO SCH (22:36)
[2022-05-24] MEDS ORDERED: chlordiazePOXIDE HCL 10 MG CAPSULE PO SCH (05:00)
[2022-05-24] MEDS: methaDONE 80 MG, methaDONE 10 MG PO SCH (05:08)
[2022-05-24] MEDS: LORazepam 0.5 MG TABLET PO SCH (05:09)
[2022-05-24] MEDS: LACTULOSE 20 GM/30 ML UDC (FOR ORAL USE ONLY) PO SCH (05:09)
[2022-05-24 06:33] VITALS: RESP 16
[2022-05-24 09:52] VITALS: BP 129/67; PULSE 71; TEMP 97.1
[2022-05-24] MEDS: NICOTINE 14 MG/24 HOURS TOPICAL PATCH TD SCH (10:54)
[2022-05-24] MEDS: PRENATAL VITAMINS W/ FOLIC ACID TABLET (FP) PO SCH (10:54)
[2022-05-24] MEDS: ENALAPRIL MALEATE 10 MG TABLET PO SCH (10:54)
[2022-05-24] MEDS: NIFEdipine E.R. 30 MG TABLET PO SCH (10:54)
[2022-05-25] MEDS ORDERED: chlordiazePOXIDE HCL 10 MG CAPSULE PO ONE (05:00)
== END 2022-05-24 11:48 | disposition home or self-care (01) | DRG 773 ==
LOC: YASAS 19:18 → Y6N 23:11
PROVIDERS: ADMIT Allergy & Immunology; ATTEND Surgery
PROC: HZ2ZZZZ Detoxification Services for Substance Abuse Treatment (ICD-10-PCS; principal; 2022-05-18)
DX: F10.230 Alcohol dependence with withdrawal, uncomplicated (principal); F11.20 Opioid dependence, uncomplicated; F14.20 Cocaine dependence, uncomplicated; F17.210 Nicotine dependence, cigarettes, uncomplicated; F32.A Depression, unspecified; I10 Essential (primary) hypertension; I25.2 Old myocardial infarction; J45.20 Mild intermittent asthma, uncomplicated; R79.89 Other specified abnormal findings of blood chemistry; Z86.69 Personal history of other diseases of the nervous system and sense organs; Z59.00 Homelessness unspecified; Z28.310 Unvaccinated for COVID-19; Z28.9 Immunization not carried out for unspecified reason
CPT/HCPCS: 36415; 80053; 82140; 85027; 86780; 87389; 87811; 93005; 93010; C9803-CS; U0003; U0005